=== PATIENT | female | born 1940 | race Caucasian/White ===

== ENCOUNTER 2016-08-18 07:57 | Emergency (ER) | payer MEDICARE, OTHER ==
[2016-08-18 08:07] VITALS: BP 145/67
--- NOTE | 2016-08-18 08:59 | ERNOTE ---
Upper Extremity HPI - Narrative Date of Service: 08/18/16 - General Extremities Pain Location: hand: right Time Seen by Provider: 08/18/16 08:49 Source: patient Exam Limitations: no limitations - Immun/Allergies/Home Medications Immunizations: IMMUNIZATION HX Immunizations Up to Date No Immunizations Comment Pt. refuses all vaccines History of Influenza Vaccine No Hx Pneumococcal Vaccination No Allergies/Adverse Reactions: Allergies Allergy/AdvReac Type Severity Reaction Status Date / Time codeine Allergy Unverified 10/16/13 13:26 morphine Allergy Unverified 10/16/13 13:26 Home Medications: HOME MEDICATIONS Omeprazole [Prilosec] 40 mg PO BID 10/16/13 [Last Taken 08/18/16 07:00] Ascorbic Acid [Vitamin C] 500 mg PO DAILY 08/18/16 [Last Taken 08/18/16 07:00] Cholecalciferol (Vitamin D3) [Vitamin D3] 1,000 unit PO DAILY 08/18/16 [Last Taken 08/18/16 07:00] - History of Present Illness Narrative: Patient was walking up an incline going up to the bank 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 Occurred: other - 2 days ago Severity: mild Method of Injury: Reports: direct blow Reason for Fall: Reports: tripped Loss of Consciousness: Reports: no loss of consciousness Other Injuries: Reports: none Review of Systems - Review of Systems Constitutional: Present: See HPI EYE: Present: no symptoms reported ENT: Present: no symptoms reported Respiratory: Present: no symptoms reported Cardiology: Present: no symptoms reported Gastrointestinal/Abdominal: Present: no symptoms reported Genitourinary: Present: no symptoms reported Musculoskeletal: Present: See HPI Skin: Present: no symptoms reported Neurological: Present: no symptoms reported Endocrine: Present: no symptoms reported Hematologic/Lymphatic: Present: no symptoms reported Psych: Present: no symptoms reported - Patient's Past Medical History Patient History - Medical: GERD Patient History - Cancer: Breast Patient History - Surgical Procedures: Cancer Surgery, Cholecystectomy, Total Hip Replacement, Total Knee Replacement, Tubal Ligation, T & A Patient History - Other: None - Family History Father Family History - Medical: Family History - Cardiac/Respiratory: Myocardial Infarction - Social History Living Situations: other Abuse History: No History of abuse Psych History: No pertinent hx Smoking Status: Never smoker Have you smoked in the past 12 months: No Do you dip or chew tobacco: No Alcohol Use: none Drug Use: none - Immunizations Immunizations Up to Date: No Hx Pneumococcal Vaccination: No History of Influenza Vaccine: No Physical Exam - Physical Exam General Appearance: Present: wd/wn, alert, mild distress Eye Exam: Normal inspection: bilateral, PERRL: bilateral Ears, Nose, Throat: Present: normal ENT inspection, H, normal pharynx Neck: Present: normal inspection, nontender Respiratory: Present: no respiratory distress, normal breath sounds, no accessory muscle use, chest nontender, lungs clear Cardiovascular/Chest: Present: regular rate, rhythm, no murmur, normal peripheral pulses Gastrointestinal/Abdominal: Present: normal bowel sounds, nontender, nondistended, soft, no organomegaly Rectal Exam: Present: deferred Back Exam: Present: normal inspection, normal range of motion Extremity Exam: Present: non-tender, normal range of motion, other - swelling and tenderness along the 5th metacarpal on the right hand Neurological Exam: Present: alert, oriented, normal mood/affect Skin Exam: Present: normal color, warm/dry Lymphatic Exam: Present: no adenopathy ED Progress - Vital Signs Patient's Vital Signs:: I have reviewed the patient's vital signs. Vital Signs: Vital Signs 08/18/16 08:02 Temperature 36.1 C L Pulse Rate 63 Respiratory 18 Rate Blood Pressure 145/67 O2 Sat by Pulse 99 Oximetry - X-Ray X-Ray #1 X-Ray: hand Interpretation: Reviewed by me - Progress/Reassessment Chief Complaint: Hand Injury/Pain Progress:: Unchanged - Transfer of Care Expected Disposition: Discharge Departure Clinical Impression: Hand contusion Qualifiers: Encounter type: initial encounter Laterality: right Qualified Code(s): S60.221A - Contusion of right hand, initial encounter - Departure Disposition: Home self-care Condition: Good Instructions: Hand Contusion, [id number] Referrals: Lance Valdovinos MD [Primary Care Provider] -
--- OUTSIDE RECORDS SUMMARY | 2016-08-18 09:06 | XMS REPORT | Continuity of Care Document ---
:1940 Author Organization [facility] ([facility]) Address [address] [place] [address] Phone [phone] Care Team Providers Name Role Phone Lance Valdovinos Primary Care Provider [phone] Source Comments This disclosure is being made pursuant to the Care Everywhere program, applicable federal and state laws, and may not contain all informaitonavailable regarding this patient.[facility] ([facility]) Active Allergies and Adverse Reactions Allergen Noted Date Severity Reactions Comments Codeine 09/17/2009 OTHER Heart palpitations Morphine 08/11/2009 Rash Current Medications Prescription Sig. Disp. Refills Start Date End Date Status omeprazole (PRILOSEC take 2 Tabs by mouth Active OTC) 20 mg tablet 2 times daily. Albuterol, Refill, 90 use 2 Puffs by Active mcg/Actuation Aero inhalation as needed. multivitamin tablet take 1 Tab by mouth Active daily. Ascorbate Calcium take 1 Tab by mouth Active (MARKUS-C) 500 mg Tab 2 times daily. CALCIUM take 1 Tab by mouth Active CARBONATE/VITAMIN D3 2 times daily. (CALCIUM + D PO) amoxicillin (AMOXIL) take 1 Cap by mouth 20 Cap 0 08/13/2009 Active 500 mg capsule 2 times daily for 7 days. Keep rest for emergency, Indications: post ERCP amoxicillin (AMOXIL) take 1 Cap by mouth 6 Cap 0 09/17/2009 Active 500 mg capsule 2 times daily for 3 days. Indications: post ERCP Active Problems Not on file Social History Tobacco Use Types Packs/Day Years Used Date Never Smoker Alcohol Use Drinks/Week oz/Week Comments No Last Filed Vital Signs Vital Sign Reading Time Taken Blood Pressure 120/65 09/17/2009 3:50 PM CDT Pulse 65 09/17/2009 3:50 PM CDT Temperature 37.2 C (99 F) 09/17/2009 1:17 PM CDT Respiratory Rate 20 09/17/2009 3:50 PM CDT Height 1.62 m (5' 3.78") 08/13/2009 5:30 PM [facility] Weight 45.8 kg (100 lb 15.5 oz) 08/13/2009 5:30 PM [facility] Body Mass Index 17.45 08/13/2009 5:30 PM [facility] Oxygen Saturation 98% 09/17/2009 3:50 PM CDT Plan of Care Health Maintenance Due Date Last Done Comments Hepatitis B Vaccine (1 of 3 - Primary Series) 1940 Tdap Vaccine 12/01/1950 Lipid Disorder Screening 12/01/1957 Td Vaccine 12/01/1957 Mammogram 1979 Colonoscopy 12/01/1989 Zoster Vaccine 1999 Osteoporosis Screening (DXA Bone Density) 12/01/2004 Pneumococcal Vaccine (1 of 2 - PCV13) 12/01/2004 Influenza Vaccine: Seasonal (#1) 01/12/2016 Results from Last 3 Months Not on file
== END 2016-08-18 09:07 | disposition home or self-care (01) ==
LOC: ER 07:57
DX: S60.221A Contusion of right hand, initial encounter (principal); W19.XXXA Unspecified fall, initial encounter; K21.9 Gastro-esophageal reflux disease without esophagitis; Z85.3 Personal history of malignant neoplasm of breast